=== PATIENT | male | born 1975 | race Caucasian/White ===

== ENCOUNTER → 2016-10-20 | Outpatient (CLI) | payer BC, OTHER ==
--- NOTE | ~2016-10-20 | S ---
[facility] [place] [address] SURGICAL PATH RPT PROCEDURE Name: NICOLLE REED Room #: REG AGATA .Naima.#: [id number] Admission: 10/20/16 Date of : 77 Discharge: Report #: [id number] Path Case #: [id number] PATHOLOGY REPORT COLLECTION DATE: 10/20/2016 RECEIVED DATE: 10/21/2016 SUBMITTING PHYS: Dr. Cuong Hein OTHER PHYS: Dr. Cuong Mckee, EMMA Williamson SPECIMEN(S) RECEIVED: A.Left breast US 200 6 CMFN * * * * * * * * * * * * FINAL DIAGNOSIS: Tissue designated as "left breast biopsy 2:00, 6 cm from nipple", ultrasound-guided needle core biopsy: - Basaloid cells adjacent to shadow cells as well as stroma showing focal giant cell reaction, findings compatible with a ruptured pilomatrixoma. - No underlying breast tissue present. COMMENT: Examination shows fragments of basaloid cells adjacent to shadow cells, as well as focal keratinous epithelium. Stroma with dense chronic inflammation as well as giant cell reaction is identified which is suggestive of a ruptured cyst. There is no background breast tissue present in this sample. 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 Correlate clinically and follow-up as indicated. An excision is suggested if clinically indicated. PATHOLOGIST: Floridalma Woodall M.D. REPORT ELECTRONICALLY SIGNED BY: Floridalma Woodall M.D. DATE/TIME: 10/22/2016 16:29 * * * * * * * * * * * * GROSS PATHOLOGY: Received in formalin labeled "Nicolle Reed, left breast biopsy, 2:00, 6 cm from nipple," are multiple needle cores of yellow-campbell fibrofatty tissue measuring 2.2 x 0.3 x 0.1 cm in aggregate dimensions. The tissue is submitted in its entirety in cassette A1. The cold ischemic time is less than 1 minute. The total formalin fixation time is 33 hours and 40 minutes. (KAH; 10/21/2016) [address] [place] [address] SURGICAL PATH RPT PROCEDURE Name: NICOL[facility] REED [id number]: 10/20/16 Date of : 77 Discharge: Report #: [id number] Path Case #: [id number] CLINICAL HISTORY: Left breast mass INITIAL CPT CODE(S): A; 12345 Professional services performed by [facility] at [facility] [address] [place] [address] Technical services performed by [facility] at [address] [place] [address], [address] [address]. [facility] [address] [address] PHONE: [phone] DIRECTOR: Chauncey Torres M.D. * * * END OF REPORT * * *
== END | disposition home or self-care (01) ==
LOC: ULTRA 10-16 06:37
DX: D23.5 Other benign neoplasm of skin of trunk (principal)

== ENCOUNTER 2016-11-27 05:36 | Day surgery (SDC) | payer BC, OTHER ==
[~2016-11-27] VITALS: Ht 180.3 cm; Wt 77.1 kg
--- NOTE | ~2016-11-27 | S ---
[facility] [place] [address] [address] [place] [address] SURGICAL PATH RPT PROCEDURE Name: NICOLLE REED Room #: DEP [facility] M.R.#: [id number] Admission: 11/27/16 Date of : 77 Discharge: 11/27/16 Report #: [id number] Path Case #: [id number] PATHOLOGY REPORT COLLECTION DATE: 11/27/2016 RECEIVED DATE: 11/27/2016 SUBMITTING PHYS: Dr. Oracio Williamson OTHER PHYS: Dr. 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 - Giant cell reaction as well as reparative changes extend focally to the margin (please see comment). COMMENT: The pilomatrixoma shows prior needle core biopsy changes. Increased mitotic activity or findings to suggest malignancy, are not identified. The pilomatrixoma appears completely excised; however, the giant cell reaction, as well as reparative changes extend focally to the margin. (IUV:mml; 12/01/2016) PATHOLOGIST: Floridalma Woodall M.D. REPORT ELECTRONICALLY SIGNED BY: Floridalma Woodall M.D. DATE/TIME: 12/01/2016 16:06 * * * * * * * * * * * * GROSS PATHOLOGY: The specimen is received in formalin labeled "Nicolle Reed, pilomatrixoma left chest wall". Received is an ellipse of pale pryor, grossly orbital skin with attached white-pryor lobulated tissue measuring 2.5 x 1.7 x 1.8 cm in greatest dimensions. The surgical margin is inked. Sectioning reveals a firm white-pryor, chalky nodule measuring 1.0 x 1.0 x 0.6 cm. The specimen is submitted representatively in cassette A1, following light decalcification. 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 [facility] [address] [address] PHONE: [phone] DIRECTOR: Chauncey W. Brian, M.D. * * * END OF REPORT * * *
--- NOTE | ~2016-11-27 | O ---
[facility] [place] [address] OPERATIVE REPORT Name: NICOLLE SONI Room #: DEP [facility] M.R.#: [id number] Admission: 11/27/16 Attend Phys: Oracio Williamson MD, F Discharge: 11/27/16 Date of : 77 Report #: [id number] THIS REPORT FOR: //name// CC: Cuong Hutchins Rafi EMMA Williamson DATE OF SERVICE: 11/27/2016 PREOPERATIVE DIAGNOSIS: A 1.5 cm pilomatrixoma skin of left chest wall. POSTOPERATIVE DIAGNOSIS: A 1.5 cm pilomatrixoma skin of left chest wall, final path pending. PROCEDURE: Excision of 1.5 cm pilomatrixoma skin of left chest wall with complex closure of the defect. SURGEON: Oracio Williamson M.D. INDICATIONS: A 41-year-old male with a small 1.5 cm nodular area approximately 7-8 cm lateral to the nipple areolar complex of his left breast, which was previously needle core biopsied demonstrating the tissue to be consistent with a pilomatrixoma. The patient for pathological completeness desires complete excision. OPERATIVE PROCEDURE: The patient had thorough discussion of procedure, benefits and risks. He gave informed consent to proceed. He was brought to the operating suite and had satisfactory induction of IV sedation. After the IV sedation was thoroughly complete, he had sterile paint and prep with DuraPrep solution of the left anterior chest wall. Draping was completed. An Ioban was placed across the draped area. Marking of the lesion had been performed prior to prepping and draping. 0.5% plain Naropin was utilized in a circumferential manner to complete a field block. An elliptical excision of the 1.5 cm mass with surrounding small ellipse of skin anteriorly and subcutaneous tissue deeper was performed. This was taken down to the border of the pectoralis fascia. Photographs were taken and made part of the medical record. The entire specimen was placed in formalin and submitted for histologic evaluation. Hemostasis was achieved with electrocautery. The deep subcutaneous tissue was elevated away from the underlying muscle with deep subcutaneous tissue. The deep subcutaneous tissue was then approximated with interrupted 3-0 Vicryl sutures. The more superficial subcutaneous tissue was then approximated in 2 layers with interrupted 3-0 Vicryl sutures. The skin margins were then approximated with running subcuticular 4-0 Monocryl. The entire length of the ellipse of skin was approximately 2 cm. Dermabond was then applied. There was minimal concavity defect of the fatty tissue underlying the closed skin site. The Dermabond was dry, the drapes were removed and the patient subsequently [place] [address] OPERATIVE REPORT Name: NICOLLE SONI Room #: DEP [facility] [place] M.R.#: [id number] Admission: 11/27/16 Attend Phys: Oracio Williamson MD, F Discharge: 11/27/16 Date of : 77 Report #: [id number] room in stable and satisfactory condition. The estimated blood loss was less than 15 mL. He tolerated the procedure well. He will be discharged and returned to the office in 1 week for followup care. By: 1803 1859 Oracio Williamson MD, FACS /nt
[~2016-11-27 05:36] MED LIST: DEPO-TESTO200 MG/1 M IM; HCG SUBQ
== END 2016-11-27 13:05 | disposition home or self-care (01) ==
LOC: OR 05:36 → TBA 05:36 → OR 08:55
DX: D23.5 Other benign neoplasm of skin of trunk (principal); M27.1 Giant cell granuloma, central; Z98.890 Other specified postprocedural states; F17.210 Nicotine dependence, cigarettes, uncomplicated
CPT/HCPCS: 50010; 50101; 50386; 50403; 54118; 56524; 56525; 56526; 56527; 62110; 62900; 70005